=== PATIENT | male | born 1950 | race Caucasian/White ===

== ENCOUNTER 2019-01-05 15:31 | Emergency (ER) | payer MEDICARE, MEDICAID ==
[~2019-01-05] VITALS: Ht 177.8 cm; Wt 92.1 kg
[2019-01-05 15:47] VITALS: BP 160/82
[2019-01-05 19:04] LABS: Basophils # (auto) 0.1 uL; Basophils % (auto) 1.9 % (0.0-2.0); Eosinophils # (auto) 0.2 uL; Eosinophils % (auto) 3.6 % (0.0-7.0); Hematocrit 35.1 % (41.0-53.0); Hemoglobin 11.8 g/dL (13.5-17.5); Lymphocytes # (auto) 1.2 uL; Lymphocytes % (auto) 18.4 % (10.0-50.0); Mean Corpuscular Hemoglobin 27.9 pg (28.0-32.0); Mean Corpuscular Hgb Conc. 33.6 g/dL (32.0-36.0); Mean Corpuscular Volume 83.1 fL (80.0-100.0); Monocytes # (auto) 0.7 uL; Monocytes % (auto) 10.8 % (0.0-12.0); Neutrophils # (auto) 4.4 uL; Neutrophils % (auto) 65.3 % (37.0-80.0); Nucleated Red Blood Cells % 0.1 %; Platelet Count (auto) 294 10^3/uL (140-450); Red Blood Cells 4.22 10^6/uL (4.5-5.90); Red Cell Distribution Width 16.4 % (11.8-14.3); White Blood Cell 6.7 10^3/uL (4.4-10.8)
[2019-01-05 19:22] LABS: BUN/Creatinine Ratio 17.1; Calcium 8.4 mg/dL (8.5-10.1); Potassium 4.8 mmol/L (3.5-5.1)
[2019-01-05 19:24] LABS: Bilirubin, Total 0.6 mg/dL (0.2-1.0); Total Protein 7.9 g/dL (6.4-8.2)
== END 2019-01-05 22:42 | disposition left against medical advice (07) ==
LOC: ER 15:40
DX: M79.89 Other specified soft tissue disorders (principal); Z53.21 Procedure and treatment not carried out due to patient leaving prior to being seen by health care provider
CPT/HCPCS: 36415; 80053; 83880; 85025

== ENCOUNTER 2019-05-08 20:44 | Inpatient (IN) | payer MEDICARE, MEDICAID | END 2019-05-10 18:00 | disposition left against medical advice (07) | LOC: TELE-EAST 23:57 → ER 20:44 → TELE-EAST 22:01 | DX: L03.115 Cellulitis of right lower limb (principal); I87.2 Venous insufficiency (chronic) (peripheral); F41.9 Anxiety disorder, unspecified; L03.116 Cellulitis of left lower limb; I51.7 Cardiomegaly ==

== ENCOUNTER 2019-07-11 23:29 | Inpatient (IN) | payer MEDICARE, MEDICAID ==
[~2019-07-11] VITALS: Ht 177.8 cm; Wt 90.7 kg
[2019-07-12 00:15] LABS: Eosinophils # (auto) 0.4 uL; Lymphocytes # (auto) 1.5 uL; Monocytes # (auto) 0.6 uL; White Blood Cell 5.7 10^3/uL (4.4-10.8)
[2019-07-12 00:16] LABS: Basophils # (auto) 0 uL; Basophils % (auto) 0.5 % (0.0-2.0); Eosinophils % (auto) 6.1 % (0.0-7.0); Hematocrit 34.4 % (41.0-53.0); Hemoglobin 10.9 g/dL (13.5-17.5); Lymphocytes % (auto) 25.6 % (10.0-50.0); Mean Corpuscular Hemoglobin 25.5 pg (28.0-32.0); Mean Corpuscular Hgb Conc. 31.8 g/dL (32.0-36.0); Mean Corpuscular Volume 80.4 fL (80.0-100.0); Monocytes % (auto) 9.8 % (0.0-12.0); Neutrophils # (auto) 3.3 uL; Nucleated Red Blood Cells % 0.1 %; Platelet Count (auto) 249 10^3/uL (140-450); Red Blood Cells 4.28 10^6/uL (4.5-5.90); Red Cell Distribution Width 18.2 % (11.8-14.3)
[2019-07-12 00:32] LABS: Albumin 2.8 g/dL (3.4-5.0); BUN/Creatinine Ratio 9.9; Calcium 8.1 mg/dL (8.5-10.1); Potassium 3.9 mmol/L (3.5-5.1)
[2019-07-12 00:35] LABS: Bilirubin, Total 0.4 mg/dL (0.2-1.0); Total Protein 6.4 g/dL (6.4-8.2)
[2019-07-12] MEDS ORDERED: ONDANSETRON HCL 4 MG/2 ML VIAL IV ONE (02:00)
[2019-07-12] MEDS ORDERED: PIPERACILLIN-TAZOB 3.375GM 100 ML IV ONE (02:00)
[2019-07-12] MEDS ORDERED: MORPHINE SULFATE 4 MG/ML SYR/VIAL IV ONE (02:00)
[2019-07-12] MEDS ORDERED: LORazepam 0.5 MG TAB PO PRN (04:15)
[2019-07-12] MEDS ORDERED: HYDROcodone-ACET 5/325MG TAB PO PRN (04:15)
[2019-07-12] MEDS ORDERED: ACETAMINOPHEN 500 MG TAB PO PRN (04:15)
[2019-07-12] MEDS ORDERED: TEMAZEPAM 15 MG CAP PO PRN (04:15)
[2019-07-12] MEDS ORDERED: ONDANSETRON HCL 4 MG/2 ML VIAL IV PRN (04:15)
[2019-07-12] MEDS: CLINDAMYCIN 600MG IV 50 ML IV SCH ×2 (06:01→14:09)
[2019-07-12] MEDS: MORPHINE SULF INJ 2 MG/ML SYRINGE 1ML IV PRN ×2 (06:28→14:09)
[2019-07-12] MEDS ORDERED: PANTOPRAZOLE 40 MG TAB PO SCH (07:00)
[2019-07-12 07:47] LABS: Alcohol, Urine < 3.0 mg/dL (0-5); Amphetamine Screen, Urine POSITIVE (NEGATIVE); Barbiturate Scree,Urine NEGATIVE (NEGATIVE); Benzodiazephine Screen, Urine NEGATIVE (NEGATIVE); Cannabinoid Screen, Urine POSITIVE (NEGATIVE); Cocaine Screen, Urine NEGATIVE (NEGATIVE); Opiate Scree,Urine POSITIVE (NEGATIVE); Phencyclidine Screen, Urine NEGATIVE (NEGATIVE)
[2019-07-12 07:49] LABS: Urine Bacteria NONE SEEN /hpf (None Seen); Urine Blood Negative /uL (Negative); Urine Hyaline Cast FEW /lpf (0 - 2); Urine Mucus FEW (None Seen); Urine Specific Gravity 1.024 (1.001-1.035); Urine WBC 5 /hpf (0 - 3)
--- NOTE | 2019-07-12 08:00 | NUR ---
PT ADMITTED TO FLOOR VIA WHEEL CHAIR FROM E... PT REPORTS 7/10 PAIN IN BOTH FEET. 2 PLUS BILATERAL EXTREMITY EDEMA NOTED, WITH ERYTHEMA AND ROUGH DRY SKIN. PT ORIENTED TO FLOOR, VISITING HOURS AND CALL LIGHT. VITALS: 99.6, 126/74, HR 53, WHICH PATIENT REPORTS IS NORMAL FOR HIM, 02 94, RR 16. PATIENT REPORTS HE IS ABLE TO AMBULATE TO BATHROOM INDEPENDENTLY, WILL CONTINUE TO MONITOR.
[2019-07-12] MEDS ORDERED: cefTRIAXone 1GM/50ML D5W 50 ML IV SCH (09:00)
[2019-07-12 10:00] VITALS: BP 126/74
[2019-07-12] MEDS ORDERED: ENOXAPARIN SOD 40 MG/0.4 ML SYRINGE SC SCH (10:00)
--- NOTE | 2019-07-12 10:00 | NUR ---
Pt denies all medical hx except for smoking and cellulitis, and previous meth use. Patient denies knowing any family history of diseases. Addendum: 07/12/19 at 1209 by VANESSA KIM RN Patient reports he does not take any home medications.
[2019-07-12 12:30] VITALS: BP 120/79
--- NOTE | 2019-07-12 15:37 | NUR ---
PT REPORTS HE HAS NO TRANSPORTATION HOME, CALLED D[facility] JAYJAY AND SHE REPORTS SHE WILL COME SEE PATIENT AND BRING TAXI VOUCHER.
--- NOTE | 2019-07-12 16:16 | NUR ---
DIOGENES SAW PATIENT AND DISCUSSED DISCHARGE PLANS. PT CAN GO HOME OR TO HOMELESS LONGTERM. PT REPORTS HE DOES NOT WANT TO GO HOME BECAUSE THERE IS A CHILD THERE AND HE IS AFRAID HE IS INFECTIOUS. PT EDUCATED BY DIOGENES AND NURSE THAT PATIENT IS NOT CONTAGIOUS AND WOULD NOT HURT THE CHILD. PT REPORTS HE STILL WANTS TO GO TO HOMELESS LONGTERM. [facility] GROVES NOTIFIED, D[facility]ES REPORTS SHE IS SENDING SOMEONE NOW. Addendum: 07/12/19 at 1621 by VANESSA KIM RN PATIENT'S MEDICATIONS FILLED AND BROUGHT TO PATIENT BY [facility]. PT EDUCATED ON MEDICATIONS BY PHARMACIST.
--- NOTE | 2019-07-12 16:40 | NUR ---
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 CALLED [facility], NO ANSWER, LEFT MESSAGE REQUESTING PICKUP.
[2019-07-12 16:54] VITALS: BP 143/98
--- NOTE | 2019-07-12 17:10 | NUR ---
CALLED [facility] AGAIN, NO ANSWER.
--- NOTE | 2019-07-12 17:38 | NUR ---
assessment Patient is a 69 year old male who is alert and oriented. Prior to admission patient lived home with friends and functioned independently. I informed patient he has a ss consult for limited support, limited income, and no transportation. Patient informed me he has support and does not want to disclose his income. Patient stated his only concern was going home with a small child in the house. Patient is scared that cellulitis will be deadly for the child. DILLAN Downs and I explained that it would not be deadly for the child to be around him. Patient will decide what he needs to do. Patient verbalized understanding and agreed to discharge plan home. Addendum: 07/12/19 at 1742 [address] Conchis RO Amended: Links added.
--- NOTE | 2019-07-12 18:12 | NUR ---
CALLED [facility] AGAIN. THEY REPORT THEY WILL BE HERE IN 30 MINUTES TO DIRECTOR OF OPTIMIZATION PATIENT OUTSIDE E.R..
--- NOTE | 2019-07-12 19:59 | NUR ---
Discharge instructions given as ordered. Encourage to follow up with PMD as instructed. All questions and concerns addressed. Patient verbalized understanding. IV removed with catheter intact, pressure dressing applied. Patient taken to [facility] vehicle via wheelchair with all personal belongings, accompanied by staff. No distress noted at time of departure.
== END 2019-07-12 19:59 | disposition home or self-care (01) | DRG 383 ==
LOC: EDBD 23:29 → ER 23:30 → OVERFLOW 23:31 → WEST WING 07-12 08:01
PROVIDERS: ADMIT Nurse Practitioner Family; ATTEND Family Medicine
DX: L03.115 Cellulitis of right lower limb (principal); I87.2 Venous insufficiency (chronic) (peripheral); F12.90 Cannabis use, unspecified, uncomplicated; I10 Essential (primary) hypertension; L40.9 Psoriasis, unspecified; L03.116 Cellulitis of left lower limb; F15.90 Other stimulant use, unspecified, uncomplicated; F17.210 Nicotine dependence, cigarettes, uncomplicated; F32.9 Major depressive disorder, single episode, unspecified; F41.9 Anxiety disorder, unspecified; K52.9 Noninfective gastroenteritis and colitis, unspecified; Z59.0 Homelessness; Z81.1 Family history of alcohol abuse and dependence; Z81.3 Family history of other psychoactive substance abuse and dependence
CPT/HCPCS: 36415; 80053; 80307; 80320; 81001; 83605; 83880; 85025; 87040; 87077; 87081; 87186; 87205; 93970; 96365; 96375; G0378; J0696; J2405; J2543; J3490